=== PATIENT | male | born 1955 | race American Indian/Alaskan Native ===

== ENCOUNTER 2017-07-04 11:03 | Day surgery (SDC) | payer BC, MEDICARE ==
[2017-07-04] MEDS ORDERED: ISOPTO CARPINE ONE (12:00)
[2017-07-04] MEDS ORDERED: AK-Dilate ONE (12:00)
[2017-07-04] MEDS ORDERED: MYDRIACYL ONE (12:00)
[2017-07-04] MEDS ORDERED: IOPIDINE ONE (12:03)
[2017-07-04 12:05] VITALS: BP 128/71
[2017-07-04] MEDS ORDERED: NEOFRIN OU ONE (12:13)
[2017-07-04] MEDS ORDERED: IOPIDINE OU ONE (12:13)
[2017-07-04] MEDS ORDERED: MYDRIACYL OU ONE (12:13)
== END 2017-07-04 13:19 | disposition home or self-care (01) ==
LOC: OR 11:03
PROVIDERS: ATTEND Specialist
DX: H26.491 Other secondary cataract, right eye (principal); I10 Essential (primary) hypertension; I25.10 Atherosclerotic heart disease of native coronary artery without angina pectoris; E78.00 Pure hypercholesterolemia, unspecified; K21.9 Gastro-esophageal reflux disease without esophagitis; Z95.1 Presence of aortocoronary bypass graft; Z79.899 Other long term (current) drug therapy; Z87.891 Personal history of nicotine dependence; Z98.890 Other specified postprocedural states
CPT/HCPCS: 82962

== ENCOUNTER 2017-07-11 10:15 | Day surgery (SDC) | payer BC, MEDICARE ==
[~2017-07-11 10:15] MED LIST: IOPIDINE OS ONE; MYDRIACYL OS ONE; NEOFRIN OS ONE
[2017-07-11 10:50] VITALS: BP 138/80
[2017-07-11] MEDS ORDERED: NEOFRIN OS ONE (11:25)
[2017-07-11] MEDS ORDERED: MYDRIACYL OS ONE (11:25)
[2017-07-11] MEDS ORDERED: IOPIDINE OS ONE (11:25)
== END 2017-07-11 10:16 | disposition home or self-care (01) ==
LOC: OR 10:15
PROVIDERS: ATTEND Specialist
DX: E11.36 Type 2 diabetes mellitus with diabetic cataract (principal); H26.492 Other secondary cataract, left eye; I25.10 Atherosclerotic heart disease of native coronary artery without angina pectoris; I10 Essential (primary) hypertension; E78.00 Pure hypercholesterolemia, unspecified; K21.9 Gastro-esophageal reflux disease without esophagitis; Z95.1 Presence of aortocoronary bypass graft; Z79.899 Other long term (current) drug therapy; Z87.891 Personal history of nicotine dependence; Z98.890 Other specified postprocedural states
CPT/HCPCS: 82962